=== PATIENT | male | born 2000 | race Two or more races ===

== ENCOUNTER 2021-06-09 19:21 | Emergency (ER) | payer MEDICAID ==
[~2021-06-09] VITALS: Ht 167.6 cm; Wt 73.0 kg
[2021-06-09 19:35] VITALS: BP 122/69
== END 2021-06-10 01:00 | disposition left against medical advice (07) ==
LOC: ER 19:21
DX: Z53.21 Procedure and treatment not carried out due to patient leaving prior to being seen by health care provider (principal)